=== PATIENT | female | born 1965 | race Caucasian/White ===

== ENCOUNTER 2016-12-19 12:44 | Emergency (ER) | payer MEDICAID ==
[~2016-12-19] VITALS: Ht 160 cm; Wt 90.7 kg
[2016-12-19] MEDS ORDERED: ROBAXIN-750750 MG PO (13:04)
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
--- NOTE | 2016-12-19 13:43 | RADIOLOGY REPORT PS360 ---
EXAM: LUMBAR SPINE 5 VIEWS HISTORY: Lumbar pain following injury fell ORDERING PHYSICIAN: Conrad Alcantar MD PATIENT AGE: 51 years COMPARISON: None FINDINGS: Normal alignment. No fracture or dislocation. There is mild anterolisthesis of L4 on L5 of 4 mm which may be degenerative in nature. There are facet arthritic changes at L4-L5 and L5-S1. There is a 9 mm calcific density overlying the left L4 transverse process and may be due to a phlebolith. A ureteral calculus is felt to be less likely but not entirely excluded. IMPRESSION: 1. No acute finding. 2. Facet arthritic changes L4-L5 and L5-S1. 3. Nonspecific calcification overlies the left L4 transverse process
[2016-12-19 14:04] VITALS: BP 148/88
== END 2016-12-19 14:04 | disposition home or self-care (01) ==
LOC: ER 12:44
DX: S30.0XXA Contusion of lower back and pelvis, initial encounter (principal); W01.0XXA Fall on same level from slipping, tripping and stumbling without subsequent striking against object, initial encounter; Y92.009 Unspecified place in unspecified non-institutional (private) residence as the place of occurrence of the external cause; M47.896 Other spondylosis, lumbar region; I25.2 Old myocardial infarction; I10 Essential (primary) hypertension; E78.5 Hyperlipidemia, unspecified; J45.909 Unspecified asthma, uncomplicated

== ENCOUNTER 2016-12-31 04:40 | Inpatient (IN) | payer MEDICAID ==
[2016-12-31] VITALS (18 sets, daily range): BP systolic 98–170; BP diastolic 61–107
[~2016-12-31] VITALS: Ht 160 cm; Wt 79.6 kg
[~2016-12-31 04:40] MED LIST: ROBAXIN-750750 MG PO
[2016-12-31 04:53] LABS: HEMOGLOBIN 12.7 g/dL (12.2-16.2); LYMPH % 30.3 % (10-50.0)
[2016-12-31 04:54] LABS: LYMPH # 2.2 K/mm3 (0.7-4.5)
--- NOTE | 2016-12-31 05:16 | RADIOLOGY REPORT PS360 ---
CHEST-PORTABLE HISTORY: CHEST PAIN X1 WEEK ORDERING PHYSICIAN: Madison Giraldo MD PATIENT AGE: 51 years COMPARISON: None available FINDINGS: The cardiomediastinal silhouette and pulmonary vascularity are within normal limits. The lungs are clear without infiltrates, suspicious nodules, or pleural effusions. No acute bony abnormalities. Postsurgical changes of the right distal clavicle IMPRESSION: Negative chest, no acute finding
--- NOTE | 2016-12-31 05:31 | Emergency Room Report ---
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 N Clinical Suspician of Infection? N Mental Status: 1 - Regular (Normal Baseline) Sepsis Risk:Low Sepsis Risk Have you (or family members/close friends) recently traveled outside the [place]? N If Yes, where/when: Have you had exposure to infectious disease within the past month? N TB? Other? Specify: Source patient, RN notes reviewed, old records Exam Limitations no limitations Comment pt with known cad and diabetes and presents with chest pain over the week with worse pain this am - pt with recent cath in [place] in november and dec - Cardiac Chest Pain Chest pain indicative of cardiac Yes Timing/Duration 4-6 hours, constant Severity/Quality moderate, pressure Location central Chest Pain Radiation no radiation Activities at Onset light activity Nitro Today/Relief 0.4 mg x 1, provided at home, mild relief Aspirin Treatment Today 325 mg x 1, provided at home Beta nikkie treatment today no beta nikkie taken Cardiac risk factors + cardiovascular disease, Diabetes, + family history Prior Workup/Intervention stent(s) Timing/Duration this morning Severity moderate ALLERGIES Coded Allergies: No Known Drug Allergies (NKDA) (12/31/16) Home Medications Active Scripts Methocarbamol (Robaxin 750MG) 750 MG PO Q8HP PRN pain #21 TAB Ref 1 Prov: 12/19/16 History Medical History General Angina: Yes AL: Yes Hypertension? Yes Hyperlipidemia? Yes CHF? No COPD? No Asthma? Yes CVA? No Seizures? No Diabetes? Yes Insulin Dependent: No Insulin Pump: No Home FSBS? Yes GB Disease: No TB? No Cancer? 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 Respiratory denies cough, denies shortness of breath, denies wheezing Cardiovascular see HPI, chest pain, denies palpitations, denies syncope Gastrointestinal see HPI, denies abdominal pain, nausea, denies vomiting Genitourinary denies: dysuria, frequency, hesitancy, hematuria. Musculoskeletal denies back pain, denies joint pain, denies joint swelling, denies neck pain Skin denies rash Psychiatric/Neurological denies headache, denies seizure Physical Exam Vital Signs Vital Signs Date Time Temp Pulse Resp B/P Pulse O2 O2 Flow FiO2 Ox Delivery Rate 12/31 0605 76 18 151/112 97 12/31 0529 72 18 143/97 94 12/31 0441 97.8 69 14 170/107 98 - WBC >12,000 or <4,000 or 10% bands? 2 or more SIRS Criteria Met? B/P:151/112 MAP:128 Creatinine >2.0? UA output<0.5ml/kg/hr for 2 hrs? Platelet count >100,000? Lactate >2.0mmol/1? INR >1.2 or PTT > than 60 sec? Evidence of Organ Dysfunction? Provider documented clinical suspician of infection? N Sepsis Criteria Count: 0 Sepsis Risk: Low Sepsis Risk General Appearance no apparent distress Eye Exam - bilateral eye PERRL, bilateral eye EOMI Ear, Nose, Throat normal ENT inspection Neck supple Respiratory Status No: respiratory distress. Lung Sounds bilateral: lungs clear. 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 No Results/Orders Laboratory Tests 12/31/16 0440: Sodium 140, Potassium 3.7, Chloride 102, Carbon Dioxide 30, BUN 10, Creatinine 1.1 H, Estimated Creat Clear 75, Estimated GFR (MDRD) 52 L, Glucose 305 H, Calcium 8.9, Total Bilirubin 0.5, AST 23, ALT 28, Alkaline Phosphatase 118 H, Creatine Kinase 166, CK-MB (CK-2) Rel Index 0.9, CK and CKMB Interp 1.5, Troponin I 1.95 H, Total Protein 7.6, Albumin 4.0, Globulin 3.6 H, Albumin/ Globulin Ratio 1.1, WBC 7.2, RBC 4.23, Hgb 12.7, Hct 38.6, MCV 91.3, RDW 13.7, Plt Count 192, Gran % 63.7, Gran # 4.6, Lymphocytes % 30.3, Monocytes % 6.0, Lymphocytes # 2.2, Monocytes # 0.4, PUBS MCHC 32.9, MCH 30.0 Current Medication Orders Sig/Ed Start time Last Medication Dose Route Stop Time Status Admin Nitroglycerin 1 IN ONCE ONE 12/31 614 AC 12/31 TP 01/01 616 0608 Nitroglycerin 0 .STK-MED ONE 12/31 06 DC .ROUTE Nitroglycerin 0 .STK-MED ONE 12/31 06 DC .ROUTE Sodium Chloride 10 ML PRN PRN 12/31 0500 AC IV 01/01 0447 Orders Procedure Date/time Status Decision to admit 12/31 06 Active ELECTROCARDIOGRAM REQUEST 12/31 044 Active IV SALINE LOCK 01/01 448 Active CBC WITH AUTO DIFF 01/01 448 Complete CARDIAC ENZYMES 01/01 448 Complete CHEM 12 PROFILE 01/01 448 Complete 12 LEAD EKG-MISTI (INITIAL) 12/31 UNK Active CM/EKG CM/EKG 1 Monitor Rhythm Normal Sinus Rhythm EKG compared w/(date of old), non-spec. ST/Twave chgs CM/EKG 2 Monitor Rhythm Normal Sinus Rhythm EKG compared w/(date of old), non-spec. ST/Twave chgs XRAY/CT/US XRAY/CT/US XRAY chest XR interpretation by reviewed by me Xray Results normal/NAD Departure Departure Time of Disposition 06 Disposition Still a Patient Clinical Impression Primary Impression: Non-STEMI (non-ST elevated myocardial infarction) Secondary Impressions: IDDM (insulin dependent diabetes mellitus) Condition STABLE Referrals Elmo Thopre MD discussed with dr barrow and dr thorpe ED Critical Care Critical Care Yes Time spent 30-74 min Vital system(s) involved: nonstemi I was present at bedside for Coordinating pt's care, Interpreting EKGs/Strips , Reviewing lab results, Reviewing old records, Discussing pt condition, Examining radiographs at 0615
[2016-12-31] MEDS ORDERED: PANTOPRAZOLE SO40 M1 PO (06:26)
[2016-12-31] MEDS ORDERED: ZANTAC 150150 MG PO (06:28)
[2016-12-31] MEDS ORDERED: GABAPENTIN300 M1 PO (06:29)
[2016-12-31] MEDS ORDERED: CLOPIDOGREL75 M2 PO (06:31)
[2016-12-31] MEDS ORDERED: TOPIRAMATE50 MG PO (06:31)
[2016-12-31] MEDS ORDERED: PRAVASTATIN SOD10 MG PO (06:32)
[2016-12-31] MEDS ORDERED: NITROSTAT 0.4M0.4 MG SL (06:33)
[2016-12-31] MEDS ORDERED: ASPIRIN ADULT L81 M2 PO (06:35)
[2016-12-31] MEDS ORDERED: HUMALOG100 U/ML SC (06:48)
--- NOTE | 2016-12-31 07:26 | PHARMACY CLINIC NOTE ---
Patient Demographics Patient Demographics Admission date: 12/31/16 Date: 12/31/16 Time: 725 Allergies Coded Allergies: No Known Drug Allergies (NKDA) (12/31/16) HEIGHT- FT: 5 IN: 3.00 [id number] VTE General Information Labs: Laboratory Tests 12/31 0440 Hematology Hgb (12.2 - 16.2 g/dL) 12.7 Hct (37.0 - 47.0 %) 38.6 Plt Count (142 - 424 K/mm3) 192 Disclaimer The following section includes nursing documentation that has been pulled in for pharmacy review. VTE prophylaxis [id number] VTE prophylaxis ordered? Yes Type of prophylaxis/treatment: KIANA at 0726
--- NOTE | 2016-12-31 07:53 | CONSULT NOTE ---
Standard Demographics Patient Demo Date of Consultation: 12/31/16 Referring Provider: Mihir Giraldo MD Reason for Consultation: NSTEMI PRIMARY DIAGNOSIS: NON STEMI Problem list Problem list: 1. DM, treated for 25 yrs 2. CAD [facility], 11/10/2016, Patent stents in mid LAD, Diagonal, obtuse marginal. Severe stenosis in the acute marginal, moderately large size vessel continuing his posterior descending artery, successfully addressed with percutaneous intervention with drug-eluting stents. Normal global and regional LEFT ventricular systolic function. B. Recurrent angina pectoris for which Cardiac catheterization undertaken on 12/10/2016, widely patent stents in left anterior descending, diagonal, OM, acute marginal. Normal global and regional LEFT ventricular systolic function. 3. Ex-smoker 4. Hypertension 5. Hyperlipidemia History of present illness: History of present illness: 51-year-old white female with recent coronary artery intervention in November and repeat cardiac catheterization and again earlier this month showing patent stents was brought to the emergency department for evaluation of recurrent chest pain that has been progressive over the last week. Symptoms are left-sided, described as a heavy chest pressure and radiate into the LEFT arm. Electrocardiograms in the emergency department shows sinus rhythm with anterior infarct pattern without acute ST segment changes. Initial troponin is elevated and cardiology consult for evaluation. Patient was given Nitropaste in the emergency room with improvement in symptoms but still with pain rated as "8 out of 10". Patient takes aspirin and Plavix and took all of her medications last night. Past Medical History: General: Hypertension Yes CVA No Seizures No TB No COPD No Asthma Yes Diabetes Yes Insulin Dependent No Insulin Pump No Angina Yes NM Yes Hyperlipidemia Yes Urinary No Cancer No Ulcers Yes GB Disease No Other ALLERGIES,DEPRESSION Past Surgical HX: Previous Surgery?Y HYSTERECTOMY LEFT EAR TUBE RT ANKLE Allergies Coded Allergies: No Known Drug Allergies (NKDA) (12/31/16) Home medications: Active Scripts Methocarbamol (Robaxin 750MG) 750 MG PO Q8HP PRN pain #21 TAB Ref 1 Prov: 12/19/16 Reported Medications Pantoprazole Sodium 40 MG PO DAILY #30 Ranitidine Hcl (Zantac) 150 MG PO BID #60 Gabapentin 300 MG PO QHS PRN neuropathy #90 Topiramate 50 MG PO DAILY #30 CLOPIDOGREL BISULFATE (Clopidogrel) 75 MG PO DAILY #30 Pravastatin Sodium 10 MG PO DAILY #30 Nitroglycerin (Nitrostat 0.4MG (1/150 Gr) Tabs #25) 0.4 MG SL [id number] PRN CHEST PAIN #30 Aspirin 81 MG PO DAILY #30 Insulin Lispro, Recombinant (Humalog 100 UNITS/ML 10ML) 30 UNITS SC AC #10 Current Medications: Current Medications Nitroglycerin 1 IN Q8 TP (UNV) Fentanyl Citrate 25 MCG PRN PRN IV (UNV) Fentanyl Citrate 50 MCG PRN PRN IV (UNV) Flumazenil 0.2 MG PRN PRN IV (UNV) Heparin Sodium (Beef Lung) 5,000 UNITS PRN PRN IV (UNV) Heparin Sodium (Porcine) 7,500 UNITS ONCE ONE IV (UNV) Heparin Sodium/Dextrose DOSING PER PHARMACY PROTOCOL CONSULT PHARMACY IV (UNi) Heparin Sodium/Sodium Chloride 3,000 UNITS PRN PRN IV (UNV) Lidocaine HCl 20 ML ONCE ONE IJ (UNV) Midazolam HCl 1 MG PRN PRN IV (UNV) Midazolam HCl 1 MG PRN PRN IV (UNV) Naloxone HCl 0.4 MG [id number] PRN IV (UNV) Nitroglycerin 800 MCG PRN PRN IV (UNV) Verapamil HCl 5 MG PRN PRN IV (UNV) Diagnostic Test (Pha) 1 EACH W/MEALS&HS FS (UNV) Insulin Human [rDNA origin] SEE ADMIN CRITERIA FOR LOW INTENSITY SS W/MEALS&HS SC (UNV) Acetaminophen 650 MG Q4HP PRN PO (UNV) Morphine Sulfate 2 MG Q2HP PRN IV (UNV) Ondansetron HCl 4 MG Q6HP PRN IV (UNV) Sodium Chloride 1,000 ML .[id number] IV (UNV) Nitroglycerin 1 IN ONCE ONE TP (DC) Nitroglycerin 0 .STK-MED ONE .ROUTE (DC) Nitroglycerin 0 .STK-MED ONE .ROUTE (DC) Sodium Chloride 10 ML PRN PRN IV Immunization HX DT/Tetanus 1-4 Years Family history Family HX Family Hx Insignificant No Social Hx: Smoking HX Tobacco No Alcohol Alcohol: No Hx of Drug Use Drug Use? No Review of systems: Constitutional No: no symptoms reported. Respiratory SOB with excertion. Cardiovascular see HPI, chest pain Gastrointestinal/Abdominal No no symptoms reported Genitourinary No: no symptoms reported. Musculoskeletal back pain. Neurological No: no symptoms reported. Exam: Admission Vital Signs: 1ST Vital Signs Result Date Time Pulse Ox 98 12/31 440 B/P 170/107 12/31 440 Temp 97.8 12/31 440 Pulse 69 12/31 440 Resp 14 12/31 440 Last Vital Signs: Vital Signs Result Date Time Pulse Ox 97 12/31 728 B/P 152/104 12/31 728 Temp 97.8 12/31 728 Pulse 72 12/31 728 Resp 18 12/31 728 Exam General appearance: alert, awake, no acute distress Neck: no carotid bruit, no JVD Cardiovascular: regular rate & rhythm, no murmur Respiratory: clear to auscultation, good air movement ABD: soft, no tenderness Extremities: moves all, no peripheral edema Neuro: alert, intact, oriented Laboratory data: Laboratory Tests 12/31/160: Sodium 140, Potassium 3.7, Chloride 102, Carbon Dioxide 30, BUN 10, Creatinine 1.1 H, Estimated Creat Clear 75, Estimated GFR (MDRD) 52 L, Glucose 305 H, Calcium 8.9, Total Bilirubin 0.5, AST 23, ALT 28, Alkaline Phosphatase 118 H, Creatine Kinase 166, CK-MB (CK-2) Rel Index 0.9, CK and CKMB Interp 1.5, Troponin I 1.95 H, Total Protein 7.6, Albumin 4.0, Globulin 3.6 H, Albumin/ Globulin Ratio 1.1, WBC 7.2, RBC 4.23, Hgb 12.7, Hct 38.6, MCV 91.3, RDW 13.7, Plt Count 192, Gran % 63.7, Gran # 4.6, Lymphocytes % 30.3, Monocytes % 6.0, Lymphocytes # 2.2, Monocytes # 0.4, PUBS MCHC 32.9, MCH 30.0 Plan: Assessment: 1. Recurrent chest pain with elevated troponin consistent with non-STEMI. Patient relates compliant with medications. 2. Long-standing diabetes mellitus 3. Hypertension 4. Hyperlipidemia 5. Ex-smoker Recommendations: Discussed with Dr. Herrera. 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 Will start IV heparin gtt after IV bolus. Will give IV metoprolol 5 mg now with 50 mg by mouth. at 0757
--- NOTE | 2016-12-31 07:53 | CONSULT NOTE ---
Standard Demographics Patient Demo Date of Consultation: 12/31/16 Referring Provider: Mihir Giraldo MD Reason for Consultation: NSTEMI PRIMARY DIAGNOSIS: NON STEMI Problem list Problem list: 1. DM, treated for 25 yrs 2. CAD A. [facility], 11/10/2016, Patent stents in mid LAD, Diagonal, obtuse marginal. Severe stenosis in the acute marginal, moderately large size vessel continuing his posterior descending artery, successfully addressed with percutaneous intervention with drug-eluting stents. Normal global and regional LEFT ventricular systolic function. B. Recurrent angina pectoris for which Cardiac catheterization undertaken on 12/10/2016, widely patent stents in left anterior descending, diagonal, OM, acute marginal. Normal global and regional LEFT ventricular systolic function. 3. Ex-smoker 4. Hypertension 5. Hyperlipidemia History of present illness: History of present illness: 51-year-old white female with recent coronary artery intervention in November and repeat cardiac catheterization and again earlier this month showing patent stents was brought to the emergency department for evaluation of recurrent chest pain that has been progressive over the last week. Symptoms are left-sided, described as a heavy chest pressure and radiate into the LEFT arm. Electrocardiograms in the emergency department shows sinus rhythm with anterior infarct pattern without acute ST segment changes. Initial troponin is elevated and cardiology consult for evaluation. Patient was given Nitropaste in the emergency room with improvement in symptoms but still with pain rated as "8 out of 10". Patient takes aspirin and Plavix and took all of her medications last night. Past Medical History: General: Hypertension Yes CVA No Seizures No TB No COPD No Asthma Yes Diabetes Yes Insulin Dependent No Insulin Pump No Angina Yes MN Yes Hyperlipidemia Yes Urinary No Cancer No Ulcers Yes GB Disease No Other ALLERGIES,DEPRESSION Past Surgical HX: Previous Surgery?Y HYSTERECTOMY LEFT EAR TUBE RT ANKLE Allergies Coded Allergies: No Known Drug Allergies (NKDA) (12/31/16) Home medications: Active Scripts Methocarbamol (Robaxin 750MG) 750 MG PO Q8HP PRN pain #21 TAB Ref 1 Prov: 12/19/16 Reported Medications Pantoprazole Sodium 40 MG PO DAILY #30 Ranitidine Hcl (Zantac) 150 MG PO BID #60 Gabapentin 300 MG PO QHS PRN neuropathy #90 Topiramate 50 MG PO DAILY #30 CLOPIDOGREL BISULFATE (Clopidogrel) 75 MG PO DAILY #30 Pravastatin Sodium 10 MG PO DAILY #30 Nitroglycerin (Nitrostat 0.4MG (1/150 Gr) Tabs #25) 0.4 MG SL [id number] PRN CHEST PAIN #30 Aspirin 81 MG PO DAILY #30 Insulin Lispro, Recombinant (Humalog 100 UNITS/ML 10ML) 30 UNITS SC AC #10 Current Medications: Current Medications Nitroglycerin 1 IN Q8 TP (UNV) Fentanyl Citrate 25 MCG PRN PRN IV (UNV) Fentanyl Citrate 50 MCG PRN PRN IV (UNV) Flumazenil 0.2 MG PRN PRN IV (UNV) Heparin Sodium (Beef Lung) 5,000 UNITS PRN PRN IV (UNV) Heparin Sodium (Porcine) 7,500 UNITS ONCE ONE IV (UNV) Heparin Sodium/Dextrose DOSING PER PHARMACY PROTOCOL CONSULT PHARMACY IV (UNi) Heparin Sodium/Sodium Chloride 3,000 UNITS PRN PRN IV (UNV) Lidocaine HCl 20 ML ONCE ONE IJ (UNV) Midazolam HCl 1 MG PRN PRN IV (UNV) Midazolam HCl 1 MG PRN PRN IV (UNV) Naloxone HCl 0.4 MG [id number] PRN IV (UNV) Nitroglycerin 800 MCG PRN PRN IV (UNV) Verapamil HCl 5 MG PRN PRN IV (UNV) Diagnostic Test (Pha) 1 EACH W/MEALS&HS FS (UNV) Insulin Human [rDNA origin] SEE ADMIN CRITERIA FOR LOW INTENSITY SS W/MEALS&HS SC (UNV) Acetaminophen 650 MG Q4HP PRN PO (UNV) Morphine Sulfate 2 MG Q2HP PRN IV (UNV) Ondansetron HCl 4 MG Q6HP PRN IV (UNV) Sodium Chloride 1,000 ML .[id number] IV (UNV) Nitroglycerin 1 IN ONCE ONE TP (DC) Nitroglycerin 0 .STK-MED ONE .ROUTE (DC) Nitroglycerin 0 .STK-MED ONE .ROUTE (DC) Sodium Chloride 10 ML PRN PRN IV Immunization HX DT/Tetanus 1-4 Years Family history Family HX Family Hx Insignificant No Social Hx: Smoking HX Tobacco No Alcohol Alcohol: No Hx of Drug Use Drug Use? No Review of systems: Constitutional No: no symptoms reported. Respiratory SOB with excertion. Cardiovascular see HPI, chest pain Gastrointestinal/Abdominal No no symptoms reported Genitourinary No: no symptoms reported. Musculoskeletal back pain. Neurological No: no symptoms reported. Exam: Admission Vital Signs: 1ST Vital Signs Result Date Time Pulse Ox 98 12/31 440 B/P 170/107 12/31 440 Temp 97.8 12/31 440 Pulse 69 12/31 440 Resp 14 12/31 440 Last Vital Signs: Vital Signs Result Date Time Pulse Ox 97 12/31 728 B/P 152/104 12/31 728 Temp 97.8 12/31 728 Pulse 72 12/31 728 Resp 18 12/31 728 Exam General appearance: alert, awake, no acute distress Neck: no carotid bruit, no JVD Cardiovascular: regular rate & rhythm, no murmur Respiratory: clear to auscultation, good air movement ABD: soft, no tenderness Extremities: moves all, no peripheral edema Neuro: alert, intact, oriented Laboratory data: Laboratory Tests 12/31/160: Sodium 140, Potassium 3.7, Chloride 102, Carbon Dioxide 30, BUN 10, Creatinine 1.1 H, Estimated Creat Clear 75, Estimated GFR (MDRD) 52 L, Glucose 305 H, Calcium 8.9, Total Bilirubin 0.5, AST 23, ALT 28, Alkaline Phosphatase 118 H, Creatine Kinase 166, CK-MB (CK-2) Rel Index 0.9, CK and CKMB Interp 1.5, Troponin I 1.95 H, Total Protein 7.6, Albumin 4.0, Globulin 3.6 H, Albumin/ Globulin Ratio 1.1, WBC 7.2, RBC 4.23, Hgb 12.7, Hct 38.6, MCV 91.3, RDW 13.7, Plt Count 192, Gran % 63.7, Gran # 4.6, Lymphocytes % 30.3, Monocytes % 6.0, Lymphocytes # 2.2, Monocytes # 0.4, PUBS MCHC 32.9, MCH 30.0 Plan: Assessment: 1. Recurrent chest pain with elevated troponin consistent with non-STEMI. Patient relates compliant with medications. 2. Long-standing diabetes mellitus 3. Hypertension 4. Hyperlipidemia 5. Ex-smoker Recommendations: Discussed with Dr. Herrera. Patient will be taken back to the cardiac cath lab manager for LEFT heart catheterization. Will start IV heparin gtt after IV bolus. Will give IV metoprolol 5 mg now with 50 mg by mouth. at 075
[2016-12-31] MEDS ORDERED: LIPITOR40 MG PO (08:03)
--- NOTE | 2016-12-31 10:21 | HISTORY AND PHYSICAL REPORT ---
History and Physical ([facility]) Date of admission: 12/31/16 Chief complaint: chest pain History: History of Present Illness: Ms Ríos is a 51-year-old white female with recent coronary artery intervention in November and repeat cardiac catheterization and again earlier this month showing patent stents was brought to the emergency department for evaluation of recurrent chest pain that had been progressive over the last week. The pain became worse this AM when driving to work from [place] to [place]. Symptoms were left-sided, described as a heavy chest pressure and radiated into the LEFT arm. Electrocardiograms in the emergency department showed sinus rhythm with anterior infarct pattern without acute ST segment changes. Initial troponin was elevated and cardiology was consulted. Patient was given Nitropaste in the emergency room with improvement in symptoms but still with pain rated as "8 out of 10". Patient was noted to take aspirin and Plavix and took all of her medications last night. Immediatly after admission patient was taken to the cleaner laboratory equipment. This initial assessment is after the cardiac cath with stent placement. She is drowsy but deneis CP at this time. Past Medical History: Medical History: Angina: Yes MS: Yes Hypertension? Yes Hyperlipidemia? Yes CHF? No COPD? No Asthma? Yes CVA? No Seizures? No Diabetes? Yes Insulin Dependent: No Insulin Pump: No Home FSBS? Yes GB Disease: No TB? No Cancer? No Surgical history: Previous Surgery?Y HYSTERECTOMY LEFT EAR TUBE RT ANKLE Medications: Active Scripts Methocarbamol (Robaxin 750MG) 750 MG PO Q8HP PRN pain #21 TAB Ref 1 Prov: 12/19/16 Reported Medications Pantoprazole Sodium 40 MG PO DAILY #30 Ranitidine Hcl (Zantac) 150 MG PO BID #60 Topiramate 50 MG PO DAILY #30 CLOPIDOGREL BISULFATE (Clopidogrel) 75 MG PO DAILY #30 Nitroglycerin (Nitrostat 0.4MG (1/150 Gr) Tabs #25) 0.4 MG SL [id number] PRN CHEST PAIN #30 Gabapentin 300 MG PO TID PRN NEUROPATHY #90 CAPSULE Atorvastatin Calcium (Atorvastatin) 40 MG PO DAILY Aspirin 81 MG PO DAILY #30 Insulin Lispro, Recombinant (Humalog 100 UNITS/ML 10ML) 30 UNITS SC AC #10 VIAL Allergies: Coded Allergies: No Known Allergies (12/31/16) Family History: Family history: Postive for: CAD, DM. Social History: Smoking Hx Tobacco: No Smoker: Former Smoker Type: N/A Packs/day: N/A Are you exposed to second hand No Alcohol: Alcohol: No Hx of Drug Use: Drug Use? No Review of Systems: ENT No: ear ache, nasal congestion, sore throat. Cardiovascular Positive for: chest pain. No: edema. Respiratory Positive for: shortness of air. No: non-productive. GI No: GERD, abdominal pain, constipation, diarrhea, hematemeis, hematochezia, melena, nausea, vomitting. (female) No: hematuria. Neurological Positive for: seizure. No: dizziness, headache, syncope. Musculoskeletal No: joint pain. Physical Exam: Vital signs: Vital Signs Date Time Temp Pulse Resp B/P Pulse O2 O2 Flow FiO2 Ox Delivery Rate 12/31 0938 81 18 161/77 96 OXYGEN 12/31 0930 92 18 156/101 94 OXYGEN 12/31 0929 92 18 140/80 94 ROOM AIR 12/31 0929 88 18 125/84 89 ROOM AIR 12/31 0928 98.1 91 18 136/91 94 ROOM AIR 12/31 0926 98.1 91 18 136/91 94 12/31 0858 18 12/31 0844 18 12/31 0819 98.1 70 20 156/81 98 ROOM AIR 12/31 0800 73 18 147/104 98 ROOM AIR 12/31 0749 79 18 141/96 98 ROOM AIR 12/31 0730 98.1 81 18 156/81 99 ROOM AIR 12/31 0730 98.1 70 20 156/81 98 12/31 0729 97.8 72 18 152/104 97 12/31 0720 98 ROOM AIR 12/31 0701 97.8 72 18 152/104 97 12/31 0634 72 18 152/104 97 12/31 0605 76 18 151/112 97 12/31 0529 72 18 143/97 94 12/31 0441 97.8 69 14 170/107 98 1ST Vital Signs Result Date Time Pulse Ox 98 12/31 0441 B/P 170/107 12/31 0441 Temp 97.8 12/31 0441 Pulse 69 12/31 0441 Resp 14 12/31 0441 O2 Delivery ROOM AIR 12/31 0720 Exam: General appearance: alert, lethargic Eyes: anicteric ENT: mucous membranes moist Cardiovascular: regular rate & rhythm Respiratory: clear to auscultation ABD: soft, no tenderness, bowel sounds present Extremities: no peripheral edema, pedal pulses (present), no calf tenderness Neuro: alert, lethargic Lab data: Labs: Laboratory Tests 12/31/16 0805: POC Glucose 215 H 12/31/16 0440: Sodium 140, Potassium 3.7, Chloride 102, Carbon Dioxide 30, BUN 10, Creatinine 1.1 H, Estimated Creat Clear 75, Estimated GFR (MDRD) 52 L, Glucose 305 H, Calcium 8.9, Total Bilirubin 0.5, AST 23, ALT 28, Alkaline Phosphatase 118 H, Creatine Kinase 166, CK-MB (CK-2) Rel Index 0.9, CK and CKMB Interp 1.5, Troponin I 1.95 H, Total Protein 7.6, Albumin 4.0, Globulin 3.6 H, Albumin/ Globulin Ratio 1.1, WBC 7.2, RBC 4.23, Hgb 12.7, Hct 38.6, MCV 91.3, RDW 13.7, Plt Count 192, Gran % 63.7, Gran # 4.6, Lymphocytes % 30.3, Monocytes % 6.0, Lymphocytes # 2.2, Monocytes # 0.4, PUBS MCHC 32.9, MCH 30.0 Radiology results: Results: 12/31/16 CXR IMPRESSION: Negative chest, no acute finding Diagnosis(es): 1. IDDM (insulin dependent diabetes mellitus) 2. Degenerative joint disease (DJD) of lumbar spine 3. Non-STEMI (non-ST elevated myocardial infarction) 4. Seizure disorder Plan: Cardiac cath with stent placement completed; will follow cardiology plan at 1052
--- NOTE | 2016-12-31 10:50 | RADIOLOGY REPORT PS360 ---
CARDIAC CATHETERIZATION DATE OF CATHETERIZATION:12/31/2016 8:16 AM PROCEDURES: 1. Left heart catheterization 2. Left ventriculogram 3. Selective coronary angiographic 4. Drug-eluting stent deployment to the distal dominant right coronary artery INDICATION FOR TEST: 1. Acute non-ST elevation myocardial infarction troponin I 1.95 2. Coronary artery disease Informed consent was obtained prior to the procedure. COMPLICATIONS: None ESTIMATED BLOOD LOSS: Less than 10 ml. TECHNIQUE: One percent lidocaine used to anesthetize the right groin. The right femoral artery was accessed via the Seldinger technique and a 4 [place] sheath was placed in the right femoral artery. A JL 4 JR4 catheter were used to perform diagnostic left heart catheterization left ventriculogram and selective coronary angiography. At the end of the diagnostic angiogram 8000 units of heparin was administered intravenously and the 4 [place] sheath was exchanged for a 6 [place] sheath. The JR4 guide catheter was used intubate the right coronary artery. The ACT was 317 seconds.. A BMW wire was placed distally and a 3.5 x 22 mm resolute [place] stent was deployed at 20 lucius in the distal right coronary artery. Excellent angiographic results were obtained with CATERINA-3 flow present before and after the procedure. At the end of the procedure the apparatus was removed good hemostasis was achieved using Perclose device patient was transferred to the postop holding area in stable condition ANGIOGRAPHIC RESULTS: 1. The left main artery normal 2. The left anterior descending artery has a proximal 20% concentric stenosis with a mid vessel stent extending into the contiguous manner into the distal segment. The stent is widely patent with minimal in-stent restenosis. The first diagonal artery is a large 2.5 mm vessel and has a stent in the proximal to mid segment which is also widely patent. The mid segment of the diagonal artery which is 2 mm in diameter has a concentric 80% stenosis. 3. The circumflex artery is nondominant yet still a large vessel giving rise to 3 decent sized obtuse marginal arteries. Proximally the circumflex which artery has 30% stenoses. The first obtuse marginal artery is 1.5 to 2 mm in diameter and has mid vessel 50% stenosis while the second obtuse marginal artery has a stent in the proximal mid distal segment. This is the largest of the obtuse marginal branches. The stent is widely patent with mild in-stent restenosis. The third obtuse marginal artery is 1.5 mm in diameter and appears to be free of significant disease 4. The right coronary artery is a large dominant vessel and has mid vessel 40% stenosis followed by an additional 30% stenosis followed by distal 50-60% concentric stenosis. The posterior descending artery has a proximal 40% and mid vessel 40% stenosis. Also originating in the mid segment 1.5 mm branch off the PDA which has an ostial 90% stenosis. Distal to this branch the PDA is 1.5 mm to 2 mm in diameter and has a long mostly eccentric 60% stenosis. The RV marginal has a stent in its ostial proximal segment which is widely patent with CATERINA II flow down the marginal branch 5. The CAMERON ventriculogram reveals hyperdynamic ejection fraction estimated at 75% 6. The left ventricular end-diastolic pressure 20 mmHg IMPRESSION: 1. Complex coronary artery disease as described above with patent stents throughout as described above 2. Acute non-ST elevation myocardial infarction producing a troponin of 1.95 3. Successful stenting of the mid to distal dominant right coronary artery with drug-eluting stent which is the presumed culprit of the infarct 4. Hyperdynamic ventricle 5. Mildly elevated LVEDP PLAN: 1. Continue aspirin Plavix 2. LDL less than 55 3. Cardiac rehabilitation 4. Risk factor modification 5. Avoidance of tobacco products 6. Patient requires much more aggressive control of her hypertension
[2016-12-31] MEDS ORDERED: LISINOPRIL20 MG PO (11:40)
[2016-12-31] MEDS ORDERED: IMDUR 60MG. TAB60 MG PO (11:41)
--- NOTE | 2016-12-31 21:15 | RADIOLOGY REPORT PS360 ---
PROCEDURE: 2-D M-mode and color Doppler study INDICATIONS FOR THE TEST: Chest pain X COPD Heart Murmur Tobacco Smoking Palpitations Fatigue Syncope Edema HypertensionXDiabetes Mellitus Rheumatic Fever SOBXDOE ObesityXHyperlipidemia Family History HD Additional History CAD WITH STENT PATIENT INFORMATION HEIGHT: 63 WEIGHT:174 GENDER: Female B/P:141/96 2-D/M-MODE INTERPRETATION: 2-D MEASUREMENTS OBSERVED VALUES IN CMS Right Ventricular Dimension (RVDd) 1.5 Interventricular Septum (Thickness)(IVsd) 1.7 Left Ventricular Internal Dimensions(LVIDd) 4.8 Left Ventricular Posterior Wall (Thickness)(LVPWd) 1.3 Aortic Root 2.9 Aortic Cusp Separation 2.1 Left Atrial Dimensions (LAD) 3.5 2D 1. Left atrium is mildly enlarged, left ventricle is normal size, there is moderate concentric left ventricular hypertrophy present, visually estimated ejection fraction of 55% no obvious regional wall motion abnormality. 2. The right atrium and right ventricle is normal size and contractility 3. The aortic valve is minimally thickened and calcified. 4. The mitral and tricuspid valve leaflets are minimally thickened 5. The pulmonic valve is visualized. 6. No significant pericardial effusion noted. DOPPLER INTERROGATION: Doppler interrogation of the aortic, mitral and tricuspid valve reveals mild mitral and tricuspid valve is tricuspid regurgitant jet velocity insufficient for calculation of the right ventricular systolic pressure, grade 1 diastolic dysfunction seen without tissue Doppler evidence of raised left atrial pressure. CONCLUSION: 1. Mildly enlarged left atrium, normal left ventricular size, moderate concentric left ventricular hypertrophy present visually estimated ejection fraction of 55% with no obvious regional motion abnormality, grade 1 diastolic dysfunction seen without tissue Doppler evidence of raised left atrial pressure. 2. Mild mitral and tricuspid regurgitation. 3. No significant pericardial effusion noted.
[2017-01-01] VITALS (17 sets, daily range): BP systolic 101–146; BP diastolic 55–94
[2017-01-01 06:04] LABS: HEMOGLOBIN 11.8 g/dL (12.2-16.2)
[2017-01-01 06:05] LABS: LYMPH # 2.3 K/mm3 (0.7-4.5)
--- NOTE | 2017-01-01 08:27 | ACUTE CARE PROGRESS NOTE (QUA) ---
See Addendum Progress Notes Subjective Date 01/01/17 Time 0745 Note Thinks she is doing well; slept well; has ambulated in the room; eating without problems; voiding QS; Denies CP and SOB; had drop in O2 sats during the night brought up with O2 Objective Findings Laboratory Tests 01/01/17 0635: POC Glucose 146 H 01/01/17 0520: Sodium 142, Potassium 3.9, Chloride 109 H, Carbon Dioxide 26, BUN 14, Creatinine 1.0, Estimated Creat Clear 86, Estimated GFR (MDRD) 58 L, Glucose 136 H, Calcium 8.2 L, WBC 7.4, RBC 3.94 L, Hgb 11.8 L, Hct 36.1 L, MCV 91.6 , RDW 14.0, Plt Count 172, Gran % 63.6, Gran # 4.7, Lymphocytes % 31.0, Monocytes % 5.4, Lymphocytes # 2.3, Monocytes # 0.4, PUBS MCHC 32.7, MCH 29.9 12/31/16 2056: POC Glucose 441 *H 12/31/16 1630: POC Glucose 299 H 12/31/16 1249: Hemoglobin A1c 7.9 H 12/31/16 1216: POC Glucose 167 H 12/31/16 0853: POC Activ Clotting Time 312 *H Vital Signs Date Time Temp Pulse Resp B/P Pulse O2 O2 Flow FiO2 Ox Delivery Rate 01/01 0618 2 01/01 0605 60 125/76 95 OXYGEN 2 01/01 0500 63 105/63 98 OXYGEN 2 01/01 0428 2 01/01 0400 97.6 59 101/59 98 OXYGEN 2 01/01 0340 98.2 60 18 115/74 96 2 01/01 0300 2 01/01 0300 60 18 115/74 96 OXYGEN 2 01/01 0215 2 01/01 0100 2 01/01 0100 62 105/75 94 OXYGEN 2 01/01 0000 98.2 66 18 105/55 93 ROOM AIR 12/31 2300 67 114/71 94 ROOM AIR 12/31 2200 66 18 131/82 95 ROOM AIR 12/315 98.5 73 18 112/63 112 12/31 2000 98.5 77 18 98/61 93 ROOM AIR 12/31 1809 97.9 77 23 119/84 95 ROOM AIR 12/31 1718 97.5 68 18 103/68 93 ROOM AIR 12/31 1700 97.9 77 23 119/84 95 12/31 1620 97.7 72 18 102/70 93 12/31 1520 97.8 71 18 110/69 97 2. 12/31 1420 97.8 69 18 112/74 94 12/31 1320 97.9 82 18 137/88 93 2 12/31 1257 79 12/31 1257 98.1 79 18 122/72 12/31 1257 98 ROOM AIR 12/31 1220 97.5 61 18 121/76 96 2 12/31 1204 98.1 61 18 122/72 98 OXYGEN 12/31 1158 61 18 122/72 12/31 1155 98.1 61 18 122/72 98 OXYGEN 12/31 1155 98.1 61 18 132/89 98 OXYGEN 12/31 1154 98.1 64 18 131/86 98 OXYGEN 12/31 1030 79 18 119/83 98 OXYGEN 12/31 1029 91 18 140/95 97 OXYGEN 12/31 1028 83 18 136/89 98 OXYGEN 12/31 0938 81 18 161/77 96 OXYGEN 12/31 0930 92 18 156/101 94 OXYGEN 12/31 0929 92 18 140/80 94 ROOM AIR 12/31 0929 88 18 125/84 89 ROOM AIR 12/31 0928 98.1 91 18 136/91 94 ROOM AIR 12/31 0926 98.1 91 18 136/91 94 12/31 0858 18 12/31 0844 18 Current Medications Insulin Human [rDNA origin] 0 .STK-MED ONE SC (DC) Acetaminophen 0 .STK-MED ONE PO (DC) Atorvastatin Calcium 40 MG QHS PO Insulin Human [rDNA origin] 0 .STK-MED ONE SC (DC) Temazepam 15 MG QHSP PRN PO Clonidine HCl 0.1 MG ONCE ONE PO (DC) Nitroglycerin 0.4 MG [id number] PRN SL Nitroglycerin 1 IN Q8 TP Aspirin 0 .STK-MED ONE .ROUTE (DC) Clopidogrel Bisulfate 0 .STK-MED ONE .ROUTE (DC) Insulin Human [rDNA origin] 0 .STK-MED ONE SC (DC) Aspirin 81 MG DAILY PO Clopidogrel Bisulfate 75 MG DAILY PO Iopamidol 90 ML ONCE ONE IV (DC) Labetalol HCl 20 MG ONCE ONE IV (DC) Metoprolol Tartrate 50 MG BID PO Diphenhydramine HCl 50 MG ONCE ONE IV (DC) Sodium Chloride 10 ML PRN PRN IV Sodium Chloride 1,000 ML .Q25H IV Sodium Chloride 10 ML PRN PRN IV Sodium Chloride 1,000 ML .Q25H IV (DC) Fentanyl Citrate 25 MCG PRN PRN IV (DC) Fentanyl Citrate 50 MCG PRN PRN IV (DC) Flumazenil 0.2 MG PRN PRN IV (DC) Heparin Sodium (Beef Lung) 5,000 UNITS PRN PRN IV (DC) Heparin Sodium/Dextrose DOSING PER PHARMACY PROTOCOL CONSULT PHARMACY IV (DC) Heparin Sodium/Sodium Chloride 3,000 UNITS PRN PRN IV (DC) Midazolam HCl 1 MG PRN PRN IV (DC) Midazolam HCl 1 MG PRN PRN IV (DC) Naloxone HCl 0.4 MG [id number] PRN IV (DC) Nitroglycerin 800 MCG PRN PRN IV (DC) Verapamil HCl 5 MG PRN PRN IV (DC) Diagnostic Test (Pha) 1 EACH W/MEALS&HS FS Insulin Human [rDNA origin] SEE ADMIN CRITERIA FOR LOW INTENSITY SS W/MEALS&HS SC Acetaminophen 650 MG Q4HP PRN PO Morphine Sulfate 2 MG Q2HP PRN IV Ondansetron HCl 4 MG Q6HP PRN IV Sodium Chloride 1,000 ML .[id number] IV Sodium Chloride 10 ML PRN PRN IV (DC) 12/31 1500 12/31 2300 01/01 0700 Intake Total 0733 436 8418 Output Total Balance 6477 847 2614 Intake, IV 664 028 7428 Intake, Oral 720 240 Patient 174 lb 181 lb Weight Last VS-Temp:97.6 B/P:125/76 Pulse:60 Resp:18 SaO2:95 OXYGEN Last weight lbs:180 oz:9 K.902 Method:Bed Scales 12/31/16 ECHO CONCLUSION: 1. Mildly enlarged left atrium, normal left ventricular size, moderate concentric left ventricular hypertrophy present visually estimated ejection fraction of 55% with no obvious regional motion abnormality, grade 1 diastolic dysfunction seen without tissue Doppler evidence of raised left atrial pressure. 2. Mild mitral and tricuspid regurgitation. 3. No significant pericardial effusion noted. 12/31/16 Cardiac cath IMPRESSION: 1. Complex coronary artery disease as described above with patent stents throughout as described above 2. Acute non-ST elevation myocardial infarction producing a troponin of 1.95 3. Successful stenting of the mid to distal dominant right coronary artery with drug-eluting stent which is the presumed culprit of the infarct 4. Hyperdynamic ventricle 5. Mildly elevated LVEDP Exam General appearance: alert, no acute distress, well-developed, well-nourished Cardiovascular: regular rate & rhythm Respiratory: clear to auscultation (bilat anterior and posterior) ABD: non-distended, soft, no tenderness, no guarding, bowel sounds present Extremities: no peripheral edema, no calf tenderness Neuro: alert, oriented, speech clear Assessment/Plan Problem List 1. IDDM (insulin dependent diabetes mellitus) 2. Degenerative joint disease (DJD) of lumbar spine 3. Non-STEMI (non-ST elevated myocardial infarction) 4. Seizure disorder Patient condition Improved Plan: continue current care, As per cardiology This inpt stay is expected to cross 2 MNs from start of care No at 0827 at 0913
--- NOTE | 2017-01-01 13:35 | ACUTE CARE PROGRESS NOTE (QUA) ---
Progress Notes Subjective Date 01/01/17 Time 1331 Note 51 yo WF in bed in NAD. No complaints of chest pain or groin pain. Ambulating in room without difficulty. Objective Findings Last VS-Temp:98.6 B/P:130/93 Pulse:60 Resp:18 SaO2:95 OXYGEN Last weight lbs:180 oz:9 [id number].902 Method:Bed Scales Exam General appearance: alert, awake, no acute distress Neck: no carotid bruit, no JVD Cardiovascular: regular rate & rhythm, murmur Respiratory: clear to auscultation ABD: soft, no tenderness Extremities: moves all, no peripheral edema Reviewed: medications, vital signs, lab results Assessment/Plan Problem List 1. IDDM (insulin dependent diabetes mellitus) 2. Degenerative joint disease (DJD) of lumbar spine 3. Non-STEMI (non-ST elevated myocardial infarction) 4. Seizure disorder 5. CAD (coronary artery disease) Assessment/Plan: RCA RUSLAN placed yesterday. On DAPT. 6. HHD (hypertensive heart disease) Assessment/Plan: Will stop NTG paste and start lisinopril in setting of HHD and diabetes. Patient condition Stable Plan: anticipating discharge home tomorrow. This inpt stay is expected to cross 2 MNs from start of care No at [id number]
--- NOTE | 2017-01-01 13:35 | ACUTE CARE PROGRESS NOTE (QUA) ---
Progress Notes Subjective Date 01/01/17 Time 1331 Note 51 yo WF in bed in NAD. No complaints of chest pain or groin pain. Ambulating in room without difficulty. Objective Findings Last VS-Temp:98.6 B/P:130/93 Pulse:60 Resp:18 SaO2:95 OXYGEN Last weight lbs:180 oz:9 [id number].902 Method:Bed Scales Exam General appearance: alert, awake, no acute distress Neck: no carotid bruit, no JVD Cardiovascular: regular rate & rhythm, murmur Respiratory: clear to auscultation ABD: soft, no tenderness Extremities: moves all, no peripheral edema Reviewed: medications, vital signs, lab results Assessment/Plan Problem List 1. IDDM (insulin dependent diabetes mellitus) 2. Degenerative joint disease (DJD) of lumbar spine 3. Non-STEMI (non-ST elevated myocardial infarction) 4. Seizure disorder 5. CAD (coronary artery disease) Assessment/Plan: RCA RULSAN placed yesterday. On DAPT. 6. HHD (hypertensive heart disease) Assessment/Plan: Will stop NTG paste and start lisinopril in setting of HHD and diabetes. Patient condition Stable Plan: anticipating discharge home tomorrow. This inpt stay is expected to cross 2 MNs from start of care No at [id number]
[2017-01-02] VITALS (12 sets, daily range): BP systolic 118–146; BP diastolic 69–91
--- NOTE | 2017-01-02 07:34 | ACUTE CARE PROGRESS NOTE (QUA) ---
Progress Notes Subjective Date 01/02/17 Time 0730 Note 51 yo WF in bed eating breakfast in NAD. No chest pains. Ambulated yesterday without complaints. Objective Findings Last VS-Temp:98.3 B/P:128/72 Pulse:54 Resp:22 SaO2:95 ROOM AIR Last weight lbs:175 oz:7 K.577 Method:Bed Scales Exam General appearance: alert, awake, no acute distress Cardiovascular: regular rate & rhythm Respiratory: clear to auscultation Reviewed: medications, vital signs, lab results Assessment/Plan Problem List 1. IDDM (insulin dependent diabetes mellitus) 2. Degenerative joint disease (DJD) of lumbar spine 3. Non-STEMI (non-ST elevated myocardial infarction) 4. Seizure disorder 5. CAD (coronary artery disease) 6. HHD (hypertensive heart disease) Patient condition Stable Plan: Cardiac status stable. Continue ASA, Plavix, Metoprolol, lisinopril and atorvastatin. OK for discharge from cardiology standpoint. Pt will follow up in [place] with Dr. Clark or Dr. Herrera. This inpt stay is expected to cross 2 MNs from start of care No at [id number]
--- NOTE | 2017-01-02 08:36 | ACUTE CARE PROGRESS NOTE (QUA) ---
Progress Notes Subjective Date 01/02/17 Time 0745 Note Pt is resting quietly in bed watching tv, denies CP or SOB, has no complaints and feels ready to go home. She is eating and voiding without difficulty. Objective Findings Laboratory Tests 01/02/17 0634: POC Glucose 161 H 01/01/17 1959: POC Glucose 173 H 01/01/17 1703: POC Glucose 159 H 01/01/17 1203: POC Glucose 180 H Vital Signs Date Time Temp Pulse Resp B/P Pulse O2 O2 Flow FiO2 Ox Delivery Rate 01/02 0600 54 22 128/72 95 01/02 0500 98.3 60 21 131/79 97 ROOM AIR 01/02 0300 59 22 146/86 96 ROOM AIR 01/02 0137 62 20 118/69 98 ROOM AIR 01/02 0000 98.4 59 17 134/83 95 ROOM AIR 01/01 2200 58 12 133/83 97 ROOM AIR 01/01 2000 98.7 64 18 132/90 93 01/01 1945 98.7 69 18 135/85 93 ROOM AIR 01/01 1857 98.6 69 18 135/85 95 OXYGEN 2 01/01 1700 98.6 64 18 146/94 95 OXYGEN 2 01/01 1500 98.6 66 18 130/87 95 OXYGEN 2 01/01 1300 98.6 67 18 117/76 95 OXYGEN 2 01/01 1100 98.6 60 18 130/93 95 OXYGEN 2 01/01 0900 98.6 68 18 132/87 95 Last VS-Temp:98.3 B/P: 128/72 Pulse:54 Resp:22 SaO2:95 ROOM AIR Last weight lbs: 175 oz: 7 K.577 Method: Bed Scales Exam General appearance: alert, awake, no acute distress Cardiovascular: regular rate & rhythm, normal peripheral pulses Respiratory: CTAB A&P ABD: non-distended, no rebound, soft, no tenderness, no guarding, no organomegaly, no palpable mass, bowel sounds present Extremities: moves all, no peripheral edema, warm, no calf tenderness, bilateral KIANA hose in place Neuro: alert, oriented, speech clear, no focal deficit Reviewed: medications, vital signs, lab results, consult note Assessment/Plan Problem List 1. IDDM (insulin dependent diabetes mellitus) 2. Degenerative joint disease (DJD) of lumbar spine 3. Non-STEMI (non-ST elevated myocardial infarction) 4. Seizure disorder 5. CAD (coronary artery disease) 6. HHD (hypertensive heart disease) Patient condition Stable Plan: Likely home today with f/u per cardiology recommendations This inpt stay is expected to cross 2 MNs from start of care No at [phone]
--- NOTE | 2017-01-03 12:14 | DISCHARGE SUMMARY STANDARD ---
Discharge Summary (FCA2) Date of admission: 12/31/16 Date of discharge: 01/02/17 Problem List: 1. IDDM (insulin dependent diabetes mellitus) 2. Degenerative joint disease (DJD) of lumbar spine 3. Non-STEMI (non-ST elevated myocardial infarction) 4. Seizure disorder 5. CAD (coronary artery disease) 6. HHD (hypertensive heart disease) History of present illness: Ms Ríos is a 51-year-old white female with recent coronary artery intervention in November and repeat cardiac catheterization again earlier this month showing patent stents who was brought to the emergency department for evaluation of recurrent chest pain that had been progressive over the past week. The pain became worse this AM when driving to work from [place] to [place]. Symptoms were left-sided, described as a heavy chest pressure and radiated into the LEFT arm. Electrocardiograms in the emergency department showed sinus rhythm with anterior infarct pattern without acute ST segment changes. Initial troponin was elevated and cardiology was consulted. Patient was given Nitropaste in the emergency room with improvement in symptoms but still with pain rated as "8 out of 10". Patient was noted to take aspirin and Plavix and took all of her medications as directed. Immediately after admission patient was taken to the [facility]. Initial assessment was after the cardiac cath with stent placement. She was drowsy but denied CP. Exam on admission: Vital Signs Date Time Temp Pulse Resp B/P Pulse O2 O2 Flow FiO2 Ox Delivery Rate 12/31 0938 81 18 161/77 96 OXYGEN 12/31 0930 92 18 156/101 94 OXYGEN 12/31 0929 92 18 140/80 94 ROOM AIR 12/31 0929 88 18 125/84 89 ROOM AIR 12/31 0928 98.1 91 18 136/91 94 ROOM AIR 12/31 0926 98.1 91 18 136/91 94 12/31 0858 18 12/31 0844 18 12/31 0819 98.1 70 20 156/81 98 ROOM AIR 12/31 0800 73 18 147/104 98 ROOM AIR 12/31 0749 79 18 141/96 98 ROOM AIR 12/31 0730 98.1 81 18 156/81 99 ROOM AIR 12/31 0730 98.1 70 20 156/81 98 / 0729 97.8 72 18 152/104 97 12/31 0720 98 ROOM AIR 12/31 0701 97.8 72 18 152/104 97 12/31 0634 72 18 152/104 97 12/31 0605 76 18 151/112 97 12/31 0529 72 18 143/97 94 12/31 0441 97.8 69 14 170/107 98 1ST Vital Signs Result Date Time Pulse Ox 98 12/31 440 B/P 170/107 12/31 440 Temp 97.8 12/31 440 Pulse 69 12/31 440 Resp 14 12/31 440 O2 Delivery ROOM AIR 12/31 0720 Exam: General appearance: alert, lethargic Eyes: anicteric ENT: mucous membranes moist Cardiovascular: regular rate & rhythm Respiratory: clear to auscultation ABD: soft, no tenderness, bowel sounds present Extremities: no peripheral edema, pedal pulses (present), no calf tenderness Neuro: alert, lethargic Hospital Course: After stent placement patient had no further CP. She ambulated without problems. Cardiology followed her during the hospitalization and medications were given at their direction. On 01/02/17 she was discharged to home. Laboratory data this visit: 12/31/16 0805: POC Glucose 215 H 12/31/16 0440: Sodium 140, Potassium 3.7, Chloride 102, Carbon Dioxide 30, BUN 10, Creatinine 1.1 H, Estimated Creat Clear 75, Estimated GFR (MDRD) 52 L, Glucose 305 H, Calcium 8.9, Total Bilirubin 0.5, AST 23, ALT 28, Alkaline Phosphatase 118 H, Creatine Kinase 166, CK-MB (CK-2) Rel Index 0.9, CK and CKMB Interp 1.5, Troponin I 1.95 H, Total Protein 7.6, Albumin 4.0, Globulin 3.6 H, Albumin/ Globulin Ratio 1.1, WBC 7.2, RBC 4.23, Hgb 12.7, Hct 38.6, MCV 91.3, RDW 13.7, Plt Count 192, Gran % 63.7, Gran # 4.6, Lymphocytes % 30.3, Monocytes % 6.0, Lymphocytes # 2.2, Monocytes # 0.4, PUBS MCHC 32.9, MCH 30.0 01/01/17 0635: POC Glucose 146 H 01/01/17 0520: Sodium 142, Potassium 3.9, Chloride 109 H, Carbon Dioxide 26, BUN 14, Creatinine 1.0, Estimated Creat Clear 86, Estimated GFR (MDRD) 58 L, Glucose 136 H, Calcium 8.2 L, WBC 7.4, RBC 3.94 L, Hgb 11.8 L, Hct 36.1 L, MCV 91.6 , RDW 14.0, Plt Count 172, Gran % 63.6, Gran # 4.7, Lymphocytes % 31.0, Monocytes % 5.4, Lymphocytes # 2.3, Monocytes # 0.4, PUBS MCHC 32.7, MCH 29.9 12/31/16 2056: POC Glucose 441 *H 12/31/16 1630: POC Glucose 299 H 12/31/16 1249: Hemoglobin A1c 7.9 H 12/31/16 1216: POC Glucose 167 H 12/31/16 0853: POC Activ Clotting Time 312 *H Imagin12/31/16 CXR IMPRESSION: Negative chest, no acute finding Discharge medications: Continue taking these medications: Methocarbamol (Robaxin 750MG) 750 MG TABLET 750 MILLIGRAM ORAL EVERY 8 HOURS NEEDED as needed for pain Qty = 21 Pantoprazole Sodium (Pantoprazole Sodium) 40 MG TABLET.DR 40 MILLIGRAM ORAL DAILY Qty = 30 Comments: take 1 tablet by mouth once daily - SIG Obtained From [facility] Ranitidine Hcl (Zantac) 150 MG TABLET 150 MILLIGRAM ORAL TWICE A DAY Qty = 60 Gabapentin (Gabapentin) 300 MG CAPSULE 300 MILLIGRAM ORAL THREE TIMES A DAY as needed for NEUROPATHY Qty = 90 Topiramate (Topiramate) 50 MG TABLET 50 MILLIGRAM ORAL DAILY Qty = 30 CLOPIDOGREL BISULFATE (Clopidogrel) 75 MG TABLET 75 MILLIGRAM ORAL DAILY Qty = 30 Nitroglycerin (Nitrostat 0.4MG (1/150 Gr) Tabs #25) 0.4 MG TAB.SUBL 0.4 MILLIGRAM SUBLINGUAL EVERY FIVE MINUTES NEEDED as needed for CHEST PAIN Qty = 30 Aspirin (Aspirin) 81 MG TAB.CHEW 81 MILLIGRAM ORAL DAILY Qty = 30 Insulin Lispro, Recombinant (Humalog 100 UNITS/ML 10ML) 100 UNIT/ML VIAL 30 UNITS Subcutaneous Injection BEFORE MEALS Qty = 10 Instructions: SLIDING SCALE PER FSBS RESULT Comments: BREAKFAST AND LUNCH TAKES 30 UNITS AND 40 AT SUPPER Atorvastatin Calcium (Atorvastatin) 40 MG TABLET 40 MILLIGRAM ORAL DAILY Lisinopril (Lisinopril) 20 MG TABLET 10 MILLIGRAM ORAL DAILY Qty = 30 Comments: take 1/2 tablet by mouth twice a day - SIG Obtained From DrFirst ISOSORBIDE MONONITRATE (Isosorbide Mononitrate ER) 60 MG TAB.ER.24H 60 MILLIGRAM ORAL DAILY Qty = 30 Comments: take 1 tablet by mouth once daily - SIG Obtained From [facility] Disposition: Patient was discharged to home in stable and satisfactory condition. Instructions: FOLLOW UP WITH CARDIOLOGY, TAKE MEDS ORDER Problem: STENT PLACEMENT Instructions: MONITOR FOR SWELLING, PAIN, OR BLEEDING FOLLOW UP WITH MD Follow up: [address] Richi Herrera Activity: Limited activity Diet: Cardiac Diet Discharge to: HOME Agency needed? N To continue with meds as per reconciliation sheet. at 1214
== END 2017-01-02 14:20 | disposition home or self-care (01) | DRG 247 ==
LOC: ER 04:40 → 2ND 06:17
PROVIDERS: Emergency Medicine; Internal Medicine
PROC: 027034Z Dilation of Coronary Artery, One Artery with Drug-eluting Intraluminal Device, Percutaneous Approach (ICD-10-PCS; 2016-12-31)
PROC: B2111ZZ Fluoroscopy of Multiple Coronary Arteries using Low Osmolar Contrast (ICD-10-PCS; 2016-12-31)
PROC: B2151ZZ Fluoroscopy of Left Heart using Low Osmolar Contrast (ICD-10-PCS; 2016-12-31)
PROC: 4A023N7 Measurement of Cardiac Sampling and Pressure, Left Heart, Percutaneous Approach (ICD-10-PCS; principal; 2016-12-31 11:00)
DX: I21.4 Non-ST elevation (NSTEMI) myocardial infarction (principal); I10 Essential (primary) hypertension; I25.10 Atherosclerotic heart disease of native coronary artery without angina pectoris; E11.9 Type 2 diabetes mellitus without complications; R06.00 Dyspnea, unspecified; M19.90 Unspecified osteoarthritis, unspecified site; G40.909 Epilepsy, unspecified, not intractable, without status epilepticus
CPT/HCPCS: C1725; C1760; C1769; C1876; C1894; J1644; Q9967